=== PATIENT | male | born 1975 | race Two or more races ===

== ENCOUNTER 2016-10-14 14:49 | Emergency (ER) | payer OTHER ==
[~2016-10-14] VITALS: Ht 180.3 cm; Wt 122.9 kg
[~2016-10-14 14:49] MED LIST: ASPIR-TRIN325 M1 PO; Ambien PO; BACLOFEN10 MG PO; BENADRYL ALLERG25 MG PO; CADUET 10/201 TABLET PO; CARVEDILOL25 MG PO; CATAPRES-TTS 20.2 MG TD; CATAPRES-TTS 21 EACH TD; COREG6.25 M1 PO; COREG6.25 MG PO; Coreg PO; FLONASE ALLERG9.9 ML BOTH NARES; HYDROCHLOROTHIA25 MG PO; KADIAN30 MG PO; KADIAN60 MG PO; LODINE400 MG PO; LYRICA25 MG PO; LYRICA300 MG PO; MORPHINE SULFAT30 M2 PO; MORPHINE SULFAT30 M4 PO; MOTRIN800 MG PO; MS CONTIN,ORAMO30 M1 PO; MS CONTIN,ORAMO30 MG PO; NAPROSYN500 MG PO; NAPROXEN500 MG PO; NITROSTAT,NITR0.4 M1 SL; PERCOCET 10/1 TABLET PO; PERCOCET 5/31 TABLET PO; PERCOCET 7.5-31 EACH PO; PREDNISONE20 MG PO; PRINIVIL10 MG PO; TESTOSTERO200 MG/12 IM; TYLOX1 CAPSULE PO; Tylenol Regular Stre PO; ZANAFLEX4 M1 PO; ZANAFLEX6 MG PO; ZESTORETIC 20-1 EAC1 PO; ZESTORETIC,P1 TABLE2 PO; ZOFRAN ODT4 MG PO; [UNRECOGNIZED DRUG - REMARK]
[2016-10-14] MEDS ORDERED: LIDODERM 5% P1 PATCH TD (18:50)
[2016-10-14 19:38] VITALS: BP 149/84
== END 2016-10-14 19:38 | disposition home or self-care (01) ==
LOC: EME 14:49
DX: M54.5 Low back pain (principal); G89.29 Other chronic pain; Z98.1 Arthrodesis status; Z79.891 Long term (current) use of opiate analgesic
CPT/HCPCS: 99281; 99284; J1170

== ENCOUNTER 2017-03-08 14:13 | Emergency (ER) | payer OTHER ==
[~2017-03-08] VITALS: Ht 180.3 cm; Wt 119.7 kg
[~2017-03-08 14:13] MED LIST changes: +LIDODERM 5% P1 PATCH TD
[2017-03-08 14:56] LABS: HEMATOCRIT 40.5 % (38.0-50.0); MCH 27.9 PG (29.0-34.0); MCHC 33.1 G/DL (30.0-36.0); MCV 84.4 FL (86-99); MEAN PLAT.VOLUME 9.6 uM^3 (9.0-12.4); PLATELET COUNT 226 K/uL (156-360); RBC DIS.WIDTH-CV 13.2 % (11.8-14.6); RBC DIS.WIDTH-SD 40.2 % (39-53); WHITE BLOOD COUNT 8.2 K/uL (4.1-10.2)
[2017-03-08 15:09] LABS: CHLORIDE 99 mEq/L (99-109); POTASSIUM 4.1 mEq/L (3.7-5.4); SODIUM 139 mEq/L (136-147)
[2017-03-08 15:12] LABS: GLUCOSE 98 mg/dL (70-99)
[2017-03-08 15:13] LABS: ANION GAP 9 MEQ/L (2-14); TOTAL BILIRUBIN 0.4 mg/dL (0.0-1.0)
[2017-03-08 15:15] LABS: ALKALINE PHOSPHATASE 61 IU/L (3-129); GFR ESTIMATE (CALCULATED) > 59 mL/min/
[2017-03-08 15:16] LABS: UREA NITROGEN (BUN) 8 mg/dL (9-23)
[2017-03-08 16:40] LABS: ADD MIUA? YES; BILIRUBIN NEGATIVE; BLOOD NEGATIVE; COLOR YELLOW ((YELLOW)); GLUCOSE (STRIP) NEGATIVE; KETONES NEGATIVE; LEUKOCYTES NEGATIVE; NITRITE NEGATIVE; PROTEIN (STRIP) 30; SPECIFIC GRAVITY 1.025 (1.000-1.030); UROBILINOGEN 0.2 MG/DL (0.2-1.0)
[2017-03-08 16:49] LABS: BACTERIA RARE /HPF; EPITHELIAL CELLS RARE /HPF; HYALINE CASTS 0-5 /LPF; MUCUS 4+ /LPF; RED BLOOD CELLS 0-5 /HPF (0-5); UCUL ADDED? NO; WHITE BLOOD CELLS 0-5 /HPF (0-5)
[2017-03-08 20:03] VITALS: BP 142/91
== END 2017-03-08 20:04 | disposition home or self-care (01) ==
LOC: EME 14:13
DX: R10.32 Left lower quadrant pain (principal); R19.7 Diarrhea, unspecified; G89.29 Other chronic pain; M54.5 Low back pain; I10 Essential (primary) hypertension; E78.5 Hyperlipidemia, unspecified; E66.9 Obesity, unspecified; Z68.36 Body mass index [BMI] 36.0-36.9, adult; Z87.442 Personal history of urinary calculi; Z90.49 Acquired absence of other specified parts of digestive tract
CPT/HCPCS: 74177; 80053; 81003; 85027; 99281; 99285; J1885; J2270; J2405; J7040